=== PATIENT | male | born 1965 | race Caucasian/White ===

== ENCOUNTER → 2016-10-27 | Outpatient (CLI) | payer OTHER ==
[~2016-10-27] MED LIST: FENO1TAB76 PO; FENO50TA PO; LEVA500T PO; TAMS0.4C67 PO; TAMS5CAP PO
[2016-10-27 10:00] LABS: AUTOMATED NEUTROPHIL # 3.2 TH/MM3 (1.8-7.7); BASOPHIL # 0.1 TH/MM3 (0-0.2); BASOPHIL % 1.9 % (0.0-2.0); EOSINOPHIL # 0.2 TH/MM3 (0-0.4); EOSINOPHIL % 4.1 % (0.0-4.0); HEMATOCRIT 41.2 % (39.0-51.0); HEMO FLAGS DIFF FINAL; LYMPH % 18.9 % (9.0-44.0); LYMPHOCYTE # 0.9 TH/MM3 (1.0-4.8); MEAN CELL VOLUME 90.3 FL (80.0-100.0); MEAN CORPUSCULAR HEMOGLOBIN 30.7 PG (27.0-34.0); MONO % 7.1 % (0.0-8.0); PLATELET COUNT 254 TH/MM3 (150-450); RED BLOOD COUNT 4.56 MIL/MM3 (4.50-5.90); RED CELL DISTRIBUTION WIDTH 13.5 % (11.6-17.2); WHITE BLOOD COUNT 4.7 TH/MM3 (4.0-11.0)
--- NOTE | 2016-10-27 10:02 | RADRPT ---
EXAM DATE/TIME: 10/27/2016 09:51 [place] COMPARISON: No previous studies available for comparison. INDICATIONS : Evaluate for pneumonia, pneumothorax, and communicable disease. Preop for laparotomy. MEDICAL HISTORY : None. SURGICAL HISTORY : None. ENCOUNTER: Initial ACUITY: 1 day PAIN SCORE: Non-responsive. LOCATION: Bilateral chest FINDINGS: PA and lateral views of the chest demonstrate the lungs to be symmetrically aerated without evidence of mass, infiltrate or effusion. The cardiomediastinal contours are unremarkable. Osseous structure s are intact. CONCLUSION: Normal examination for a patient of this age. Russel Salgado MD on October 27, 2016 at 10:00 Board Certified Radiologist. This report was verified electronically.
[2016-10-27 10:19] LABS: ALKALINE PHOSPHATASE 53 U/L (45-117); ALT (GPT) 24 U/L (12-78); ANION GAP 6 MEQ/L (5-15); AST (GOT) 13 U/L (15-37); BICARBONATE 27.8 MEQ/L (21.0-32.0); BLOOD UREA NITROGEN 9 MG/DL (7-18); CHLORIDE 105 MEQ/L (98-107); GLOMERULAR FILTRATION RATE 109 ML/MIN (>89); GLUCOSE,FASTING 95 MG/DL (74-99); POTASSIUM 4.2 MEQ/L (3.5-5.1); SODIUM (NA) 139 MEQ/L (136-145); TOTAL BILIRUBIN ADULT 0.3 MG/DL (0.2-1.0)
[2016-10-27 11:09] LABS: BLOOD, URINE NEG (NEG); GLUCOSE,URINE NEG (NEG); KETONE, URINE NEG (NEG); MUCUS URINE FEW /lpf (OCC); NITRITE,URINE NEG (NEG); URINE COLOR YELLOW (YELLW/STRAW)
[2016-10-27 11:10] LABS: COMMENT (UR) CULT NOT INDICATED; CULTURE IF INDICATED CULT NOT INDICATED
== END ==
LOC: CPRE 08:50
PROVIDERS: ATTEND Colon & Rectal Surgery
DX: K60.3 Anal fistula (principal)
CPT/HCPCS: 36415; 71020; 80053; 81001; 85025

== ENCOUNTER → 2016-11-02 | Day surgery (SDC) | payer OTHER ==
[~2016-11-02] VITALS: Ht 172.7 cm; Wt 87.3 kg
[~2016-11-02] MED LIST changes: +BUPIVACAINE/EPINEPHRINE 0.5% PF 10 ML VIAL INFIL ONE; +DEXAMETHASONE SOD PHOS 4 MG/ML VIAL ONE; +DO NOT ADM ANY ANTICOAGULANT DRUGS XX PRN; +FAMOTIDINE 20 MG/2 ML VIAL ONE; -FENO1TAB76 PO; +INSULIN HUMAN REGULAR 1,000 UNITS/10 ML VIAL SQ PRN; +LACTATED RINGER'S 1000 ML IV SCH; -LEVA500T PO; +LIDOCAINE 1%/EPINEPHrine 1:100,000 SOLN 30 ML VIAL INFIL ONE; +METOPROLOL TARTRATE 25 MG TAB PO PRN; +MIDAZOLAM HCL 2 MG/2 ML VIAL ONE; +MORPHINE SULFATE 4 MG/ML INJ IV PRN; +NEOSTIGMINE 3 MG/3 ML SYR IV ONE; +ONDANSETRON HCL 4 MG/2 ML VIAL IV PUSH ONE; +ONDANSETRON HCL 4 MG/2 ML VIAL IV PUSH PRN; +PROPOFOL 200 MG/20 ML AMP IV ONE; +SILVER SULFADIAZINE/LIDOCAINE CREAM 60 GM JAR RECTAL ONE; +SODIUM CHLORID 0.9% 500 ML IV SCH; -TAMS0.4C67 PO; +fentaNYL CITRATE 250 MCG/5 ML AMP ONE; +oxyCODONE/ACETAMINOPHEN 5 MG/325 MG TAB PO PRN
[2016-11-02 11:23] VITALS: BP 147/83; PULSE 74; RESP 18; TEMP 98.6; O2SAT 99
--- NOTE | 2016-11-02 12:19 | PD.HP.UP ---
H&P Update Note The Pre-Admit History and Physical Examination regarding the above named patient was reviewed (including, but not limited to, vital signs, heart, lungs, co-morbid conditions), and upon re-examination it is noted that: the patient's condition has not significantly changed since the last examination. Frank Maxwell MD Nov 02, 2016 12:19
[2016-11-02 16:20] VITALS: BP 141/72; PULSE 89; RESP 20; TEMP 97; O2SAT 95
--- NOTE | 2016-11-03 11:15 | MP ---
cc: CLAYTON DELGADILLO M.D. DATE OF SURGERY: 11/02/2016 PREOPERATIVE DIAGNOSIS: Chronic anal fissula. PROCEDURE: Examination under anesthesia with fistulotomy. POSTOPERATIVE DIAGNOSIS Examination under anesthesia with fistulotomy. SURGEON Dr. Delgadillo PROCEDURE The patient was placed in the supine position. After adequate general anesthesia, he was turned and placed in the prone jackknife position. His buttocks taped apart, prepped with Betadine solution and draped in the usual sterile fashion. Initially local anesthesia was obtained by injection of 1% Xylocaine / 0.5% Marcaine with epinephrine. Canal was gently dilated and half-betancourt retractor inserted. Examination revealed, C-tongue in place, exiting in the posterior midline and the right posterior quadrant. A fistula probe was passed easily along the tract to confirm its location. No other extensions of the fistula or sinus tracts were noted. The exit the internal opening appeared to be quite superficial as compared to the previous surgery when C tongue was placed. The track was actually fairly clean but full of granulation tissue. Due to the distal nature of the external opening the fistulotomy was performed following the tract from the external opening toward the internal opening. The base of the tract was curetted and granulation tissue and epithelial tissue was removed. After adequate irrigation and debridement the track did appear to be healthy. No other extensions of the track a sinuses were identified. Area was cauterized for hemostasis. A Kerlix dressing placed in the fistula defect and a large fluff dressing placed externally. The patient tolerated the procedure quite well and was brought to recovery room in stable condition. Sponge and needle counts were correct at the end of the procedure. MD DEEPTHI Potter/emir /9:26 AM /11:04 AM
== END | disposition home or self-care (01) ==
LOC: HSDC 10:34
PROVIDERS: ATTEND Colon & Rectal Surgery
DX: K60.1 Chronic anal fissure (principal); I10 Essential (primary) hypertension
CPT/HCPCS: 00902; 46280; J1100; J2250; J3010; J2405; J2710